=== PATIENT | male | born 1950 | race Caucasian/White ===

== ENCOUNTER 2024-05-28 16:08 | Emergency (ER) | payer MEDICARE, MEDICAID, SELFPAY ==
[2024-05-28] VITALS (23 sets, daily range): BP systolic 80–135; BP diastolic 44–83; PULSE 67–96; RESP 16; TEMP 36.3; O2SAT 93–100; BMI 35.6
--- NOTE | 2024-05-28 16:21 | ECG_ITS ---
[facility] Test Date: 2024-05-28 Pat Name: AVILA READ Department: Room: - Gender: Male [employer]: : 1950 Requested By: YARELIS BILLINGSLEY Order Number: [id number] Reading MD: COLTON SEALS Measurements Intervals [place] Rate: 74 P: 44 CO: 178 QRS: -49 QRSD: 84 T: 30 QT: 386 QTc: 414 Interpretive Statements 1100 Sinus rhythm 3134 Anterior myocardial infarction, age undetermined 3634 Inferior myocardial infarction, age undetermined 8102 Low QRS voltage in chest leads 9150 abnormal ECG No previous ECG available for comparison Electronically Signed On 05-30-2024 7:32:52 EDT by COLTON SEALS
--- NOTE | 2024-05-28 16:54 | XR_ITS ---
The [address] [address] Patient Name: AVILA READ MRN: [id number] date: 1950 Sex: M Assigned Patient Location: ER Current Patient Location: ED.MAIN Accession/Order Number: [id number] Exam Date: 05/28/2024 17:00 Report Date: 05/28/2024 17:52 At the request of: LIANA SCOTT Procedure: XR chest 1V EXAM: XR chest 1V HISTORY: ams COMPARISON: None. TECHNIQUE: AP supine chest x-ray. FINDINGS: Recent rotated. There is asymmetric density left lower chest obscures the lower heart margin and diaphragm costophrenic angle. Suggest pleural effusion possible infiltrate or atelectasis in the adjacent left lower lobe. Left upper lung field the right lung appear clear although markings are prominent. Cardiac silhouette enlarged. Accentuated by magnification and rotation. No right-sided pleural effusion. Opaque device projects over the upper left chest. XR/XR chest 1V IMPRESSION: Increased density left lower chest suggests pleural effusion possible infiltrate in the adjacent left lung base lower lobe. Follow-up recommended. Could also obtain chest CT to evaluate this area. Electronically authenticated by: DAVID MARES Date: 05/28/2024 17:52
[2024-05-28 17:02] LABS: Basophils Absolute Auto 0.1 10^3/uL (0.0-0.1); Basophils Percent Auto 0.5 % (0.2-2.0); Eosinophils Absolute Auto 0.5 10^3/uL (0.0-0.7); Eosinophils Percent Auto 3.7 % (0.9-7.0); Hematocrit 31.3 % (42.0-54.0); Hemoglobin 9.6 g/dL (14.0-18.0); Immature Granulocytes Abs Auto 0.32 10^3/uL (0.00-0.03); Immature Granulocytes Pct Auto 2.4 % (0.0-0.5); Lymphocytes Absolute Auto 1.6 10^3/uL (1.2-3.8); Lymphocytes Percent Auto 11.7 % (20.5-60.0); Mean Corpuscular HGB Conc 30.7 g/dL (29.9-35.2); Mean Corpuscular Hemoglobin 26.7 pg (25.9-34.0); Mean Corpuscular Volume 87.2 fL (80.0-94.0); Mean Platelet Volume 10.3 fL (9.5-13.5); Monocytes Absolute Auto 1.2 10^3/uL (0.3-0.8); Monocytes Percent Auto 9.1 % (1.7-12.0); Neutrophils Absolute Auto 9.7 10^3/uL (1.4-6.5); Neutrophils Percent Auto 72.6 % (43.0-75.0); Platelet Count 230 10^3/uL (150-450); Red Blood Count 3.59 10^6/uL (4.70-6.10); Red Cell Distribution Width 15.2 % (11.0-15.0); White Blood Count 13.4 10^3/uL (4.0-11.0)
[2024-05-28 17:17] LABS: INR 0.98; Prothrombin Time 10.4 sec (9.0-11.6)
[2024-05-28 17:23] LABS: Alanine Aminotransferase 29 U/L (16-63); Albumin Globulin Ratio 0.5; Albumin Level 2.3 g/dL (3.4-5.0); Alkaline Phosphatase 133 U/L (46-116); Anion Gap 12.6; Aspartate Amino Transferase 20 U/L (15-37); BUN Creatinine Ratio 14.9; Bilirubin Total 0.6 mg/dL (0.2-1.0); Calcium 8.4 mg/dL (8.5-10.1); Carbon Dioxide 29.5 mmol/L (21.0-32.0); Chloride 100 mmol/L (98-107); Estimated GFR (African America 16 (>=60); Estimated GFR (Non-African Ame 13 (>=60); Globulin 4.6 g/dL; Glucose 207 mg/dL (74-106); Potassium 5.1 mmol/L (3.5-5.1); Sodium 137 mmol/L (136-145); Total Protein 6.9 g/dL (6.4-8.2)
[2024-05-28 17:25] LABS: Magnesium 2.2 mg/dL (1.8-2.4); Troponin I High Sensitivity 35.6 pg/mL (4.0-76.1)
[2024-05-28 17:28] LABS: Lactate/Lactic Acid 1.2 mmol/L (0.4-2.0)
[2024-05-28 17:45] LABS: Internal Control Within Normal Limits; SARS-CoV-2 Ag NEGATIVE (NEGATIVE)
[2024-05-28] MEDS: IPRATROPIUM/ALBUTEROL SULFATE 3 ML AMPUL.NEB IH (18:07)
[2024-05-28 18:30] LABS: Allen Test POSITIVE (POSITIVE); Base Excess ABG 1.6 mmol/L (-2.0-2.0); HCO3 ABG 27.3 mmol/L (22.0-26.0); Oxygen Saturation ABG 95.3 %; PO2 ABG 77.4 mmHg (80.0-100.0); pH ABG 7.341 (7.350-7.450)
[2024-05-28 18:31] LABS: Liters per Minute 2; O2 Mode NASAL CANNULA; Puncture Site L RADIAL
[2024-05-28 18:32] LABS: ABG PCO2 50.6 mmHg (35.0-45.0)
--- NOTE | 2024-05-28 18:48 | ED_ITS ---
HPI HPI - General Adult General Chief complaint: Recheck/Abnormal Lab/Rx Stated complaint: ABNORMAL LABS Time Seen by Provider: 05/28/24 16:20 Source: caregiver Mode of arrival: ambulance Limitations: altered mental status History of Present Illness HPI narrative: The patient have a very extensive history that was recently over the last 2 months range from knee replacement to decubital ulcer to upper GI bleed and non- STEMI in addition to CODE BLUE and arrest during the procedure, but he had recently been healing in the [place] from all this in addition to his kidney function was getting better before he was discharged from [facility] Today the patient brought to us because he has elevated kidney function on the blood tests with a creatinine of 4 At the bedside the patient mentioned that he is mentally has been sleepy and only oriented x 1 since he had the rest and that his baseline Related Data Allergies Allergy/AdvReac Type Severity Reaction Status Date / Time iodine Allergy Severe Anaphylaxis Verified 05/28/24 16:16 Opioid HPI Opioid Management Most Recent Opioid Data: No Data to Display Review of Systems ROS Narrative The patient clinical presentation prevents me from obtaining review of system but according to the he did not have any complaint before arrival Exam Narrative Exam Narrative: Nurses notes and vital signs reviewed and patient is not hypoxic. General: Well-appearing and in no apparent distress. Skin: Warm, dry, no pallor noted. No rash. Head: Normocephalic, atraumatic. Neck: Supple, non-tender. Eye: Pupils are equal, round and EOMI. No scleral icterus. Ears, Nose, Mouth, and Throat: TM are clear, no nasal mucosal hypertrophy. Oral mucosa is moist, no posterior oropharynx erythema, uvula is mid-line Cardiovascular: Regular Rate and Rhythm without murmur, gallop or rub. Respiratory: Decreased air entry bilaterally and the patient have bilateral expiratory lung wheezes Chest Wall: no tenderness Back: No midline thoracic or lumbar vertebral tenderness. No CVA tenderness Musculoskeletal: normal ROM, no calf or popliteal tenderness, no lower extremity edema/swelling GI: Abdomen is soft, non-distended. Normal bowel sounds. No masses appreciated. No tenderness to palpation. No rebound, guarding, or rigidity noted. Neurological: Patient is sleepy he responds to calling his name and is following commands Constitutional Vital Signs, click to edit/add: Last Vital Signs Temp 97.4 F L 05/28/24 16:15 Pulse 74 05/28/24 18:18 Resp 18 05/28/24 18:18 Pulse Ox 98 05/28/24 18:18 O2 Del Method Nasal Cannula 05/28/24 18:18 O2 Flow Rate 2 05/28/24 18:18 Course Vital Signs Vital signs: Vital Signs Pulse Rate 76 05/28/24 16:10 Respiratory Rate 24 H 05/28/24 16:10 Pulse Oximetry 97 05/28/24 16:10 Oxygen Delivery Method Nasal Cannula 05/28/24 16:10 Oxygen Delivery Flow Rate 2 05/28/24 16:10 Temperature 97.4 F L 05/28/24 16:15 Pulse Rate 74 05/28/24 18:18 Respiratory Rate 18 05/28/24 18:18 Pulse Oximetry 98 05/28/24 18:18 Oxygen Delivery Method Nasal Cannula 05/28/24 18:18 Oxygen Delivery Flow Rate 2 05/28/24 18:18 Medical Decision Making MDM Narrative Medical decision making narrative: Patient EKG showing sinus rhythm with a heart rate of 74 CBC shows mild leukocytosis w Chest x-ray shows possible effusion and pneumonia The patient chemistry showing elevated creatinine at 4 and his baseline was 1.8 before he was discharged from [facility] Right now the patient also have a small effusion in his x-ray and possible fluid overload could be due to the mild edema of the lower extremities The patient was started azithromycin and ceftriaxone ABGs obtained showing some acidosis and the patient will be placed on the BiPAP The patient will be transferred to [facility] for further evaluation of his acute kidney injury Lab Data Labs: Lab Results 05/28/24 05/28/24 Range/Units 16:50 18:15 WBC 13.4 H (4.0-11.0) 10^3/uL RBC 3.59 L (4.70-6.10) 10^6/uL Hgb 9.6 L (14.0-18.0) g/dL Hct 31.3 L (42.0-54.0) % MCV 87.2 (80.0-94.0) fL MCH 26.7 (25.9-34.0) pg MCHC 30.7 (29.9-35.2) g/dL RDW 15.2 H (11.0-15.0) % Plt Count 230 (150-450) 10^3/uL MPV 10.3 (9.5-13.5) fL Neut % (Auto) 72.6 (43.0-75.0) % Lymph % (Auto) 11.7 L (20.5-60.0) % [place] % (Auto) 9.1 (1.7-12.0) % Eos % (Auto) 3.7 (0.9-7.0) % Baso % (Auto) 0.5 (0.2-2.0) % Neut # (Auto) 9.7 H (1.4-6.5) 10^3/uL Lymph # (Auto) 1.6 (1.2-3.8) 10^3/uL [place] # (Auto) 1.2 H (0.3-0.8) 10^3/uL Eos # (Auto) 0.5 (0.0-0.7) 10^3/uL Baso # (Auto) 0.1 (0.0-0.1) 10^3/uL Abs Immat Gran (auto) 0.32 H (0.00-0.03) 10^3/uL Imm/Tot Granulo (auto) 2.4 H (0.0-0.5) % PT 10.4 (9.0-11.6) sec INR 0.98 Puncture Site L radial ABG pH 7.341 L (7.350-7.450) ABG pCO2 50.6 H* (35.0-45.0) mmHg ABG pO2 77.4 L (80.0-100.0) mmHg ABG HCO3 27.3 H (22.0-26.0) mmol/L ABG O2 Saturation 95.3 % ABG Base Excess 1.6 (-2.0-2.0) mmol/L Iván Test Positive (POSITIVE) O2 Liters/Min 2 Sodium 137 (136-145) mmol/L Potassium 5.1 (3.5-5.1) mmol/L Chloride 100 (98-107) mmol/L Carbon Dioxide 29.5 (21.0-32.0) mmol/L Anion Gap 12.6 BUN 65.0 H (7.0-18.0) mg/dL Creatinine 4.36 H (0.70-1.30) mg/dL Est GFR ( Amer) 16 L (>=60) Est GFR (Non-Af Amer) 13 L (>=60) BUN/Creatinine Ratio 14.9 Glucose 207 H (74-106) mg/dL Lactate 1.2 (0.4-2.0) mmol/L Calcium 8.4 L (8.5-10.1) mg/dL Magnesium 2.2 (1.8-2.4) mg/dL Total Bilirubin 0.6 (0.2-1.0) mg/dL AST 20 (15-37) U/L ALT 29 (16-63) U/L Alkaline Phosphatase 133 H (46-116) U/L Troponin I High Sens 35.6 (4.0-76.1) pg/mL Total Protein 6.9 (6.4-8.2) g/dL Albumin 2.3 L (3.4-5.0) g/dL Globulin 4.6 g/dL Albumin/Globulin Ratio 0.5 SARS-CoV-2 Ag (CV2AG) Negative (NEGATIVE) Discharge Plan Discharge Chief Complaint: Recheck/Abnormal Lab/Rx Clinical Impression: TYLOR (acute kidney injury), Pneumonia, Acute and chronic respiratory failure with hypercapnia Patient Disposition: [facility]
[2024-05-28] MEDS: CEFTRIAXONE 1,000 MG in 0.9 % SODIUM CHLORIDE 50 ML 100 MG IV (19:17)
[2024-05-28] MEDS: AZITHROMYCIN 500 MG in 0.9 % SODIUM CHLORIDE 250 ML 250 MG IV (20:07)
[2024-05-28] MEDS: 0.9 % SODIUM CHLORIDE 1,000 ML 1000 ML IV (20:08)
== END 2024-05-28 21:54 | disposition short-term general hospital (02) ==
PROVIDERS: Emergency Provider Emergency Medicine; PCP Family Medicine
DX: N17.9 Acute kidney failure, unspecified (principal); J18.9 Pneumonia, unspecified organism; J96.22 Acute and chronic respiratory failure with hypercapnia; Z20.822 Contact with and (suspected) exposure to COVID-19; Z96.659 Presence of unspecified artificial knee joint; I25.2 Old myocardial infarction
CPT/HCPCS: 36415; 36600; 71045; 80053; 82805; 83605; 83735; 84484; 85025; 85610; 87811; 93005; 94640; 94660; 96365; 96367; 99285; J0456; J0696